=== PATIENT | male | born 1960 | race Caucasian/White ===

== ENCOUNTER 2018-10-14 12:59 | Emergency (ER) | payer OTHER ==
[2018-10-14] MEDS ORDERED: Sodium Chloride 0.9% 1,000 ML IV ONE (13:02)
[2018-10-14] MEDS ORDERED: Heparin Sod,Pork In 0.45% Nacl 25,000 UNIT/500 ML IV.SOLN IV ONE (13:02)
[2018-10-14] MEDS ORDERED: Heparin Sodium 5,000 Units/ML Vial ONE (13:02)
[2018-10-14] MEDS ORDERED: Tenecteplase 50 MG Kit ONE (13:02)
[2018-10-14] MEDS ORDERED: Heparin Sodium 5,000 Units/ML Vial IVPUSH ONE (13:02)
[2018-10-14] MEDS ORDERED: Clopidogrel 75 MG Tab PO ONE (13:06)
[2018-10-14] MEDS ORDERED: Heparin Sod,Pork In 0.45% Nacl 25,000 UNIT/500 ML IV.SOLN IV SCH (13:06)
[2018-10-14] MEDS ORDERED: fentaNYL 100 MCG/2 ML SDV IVPUSH PRN ×2 (13:06)
[2018-10-14] MEDS ORDERED: Tenecteplase 50 MG Kit IV SCH (13:06)
--- NOTE | 2018-10-14 13:08 | EDM.PDOC ---
ED HPI GENERAL MEDICAL PROBLEM - General Chief Complaint: Chest Pain Stated Complaint: CHEST PAIN Time Seen by Provider: 10/14/18 13:06 Source of Information: Reports: Patient - History of Present Illness INITIAL COMMENTS - FREE TEXT/NARRATIVE: HISTORY AND PHYSICAL: History of present illness: Patient with history of stenting presents via EMS with chest pain 8 out of 10 nonradiating clammy no shortness breath at this time EMS had provided aspirin 324 mg chewable as well as 2 nitroglycerin and 25 g of fentanyl pain controlled on arrival Review of systems: As per history of present illness and below otherwise all systems reviewed and negative. Past medical history: As per history of present illness and as reviewed below otherwise noncontributory. Surgical history: As per history of present illness and as reviewed below otherwise noncontributory. Social history: No reported history of drug or alcohol abuse. Family history: As per history of present illness and as reviewed below otherwise noncontributory. Physical exam: HEENT: Atraumatic, normocephalic, pupils reactive, negative for conjunctival pallor or scleral icterus, mucous membranes moist, throat clear, neck supple, nontender, trachea midline. Lungs: Clear to auscultation, breath sounds equal bilaterally, chest nontender. Heart: S1S2, regular, negative for clicks, rubs, or JVD. Abdomen: Soft, nondistended, nontender. Negative for masses or hepatosplenomegaly. Negative for costovertebral tenderness. Pelvis: Stable nontender. Genitourinary: Deferred. Rectal: Deferred. Extremities: Atraumatic, negative for cords or calf pain. Neurovascular unremarkable. Neuro: Awake, alert, oriented. Cranial nerves II through XII unremarkable. Cerebellum unremarkable. Motor and sensory unremarkable throughout. Exam nonfocal. Diagnostics: [EBC CMP UA troponin EKG Chest 1 view ] Therapeutics: [ heparin 4000 unit bolus 12/kg drip rate TN K ] weightbase Plavix 300 mg Impression: acute coronary syndrome Inferior STEMI ] Definitive disposition and diagnosis as appropriate pending reevaluation and review of above. - Related Data Allergies Allergy/AdvReac Type Severity Reaction Status Date / Time No Known Allergies Allergy Verified 10/14/18 13:05 ED ROS GENERAL - Review of Systems Review Of Systems: See Below ED EXAM, GENERAL - Physical Exam Exam: See Below Course - Orders/Labs/Meds Orders: Active Orders 24 hr Category Date Time Status CBC WITH AUTO DIFF [HEME] Stat Lab 10/14/18 13:01 Ordered COMPREHENSIVE METABOLIC PN,CMP [CHEM] Stat Lab 10/14/18 13:02 Ordered TROPONIN I [CHEM] Stat Lab 10/14/18 13:02 Ordered Clopidogrel [Plavix] Med 10/14/18 13:06 Once 300 mg PO ONETIME ONE Sodium Chloride 0.9% [Normal Saline] 1,000 ml Med 10/14/18 13:02 Active IV STAT Medication Orders Clopidogrel Bisulfate (Plavix) 300 mg PO ONETIME ONE Stop: 10/14/18 13:07 Sodium Chloride (Normal Saline) 1,000 mls @ 999 mls/hr IV STAT ONE Stop: 10/14/18 14:02 Meds: Medications Generic Name Dose Route Start Last Admin Trade Name Freq PRN Reason Stop Dose Admin Clopidogrel Bisulfate 300 mg 10/14/18 13:06 Plavix PO 10/14/18 13:07 ONETIME ONE Sodium Chloride 1,000 mls @ 999 mls/hr 10/14/18 13:02 Normal Saline IV 10/14/18 14:02 STAT ONE Discontinued Medications Generic Name Dose Route Start Last Admin Trade Name Freq PRN Reason Stop Dose Admin Heparin Sodium (Porcine) 4,000 units 10/14/18 13:02 Heparin Sodium IVPUSH 10/14/18 13:03 .BOLUS ONE Heparin Sodium (Porcine) Confirm 10/14/18 13:02 Heparin Sodium Administered 10/14/18 13:03 Dose 5,000 units .ROUTE .STK-MED ONE Heparin Sodium/Sodium Chloride Confirm 10/14/18 13:02 Heparin-1/2ns 25,000 Units/500 Administered 10/14/18 13:03 Dose 25,000 unit in 500 mls @ as directed IV .STK-MED ONE Tenecteplase Confirm 10/14/18 13:02 Tnkase Administered 10/14/18 13:03 Dose 50 mg .ROUTE .STK-MED ONE Departure - Departure Time of Disposition: 13:08 Disposition: DC/Tfer to Acute Hospital 02 Condition: Poor Clinical Impression: Acute coronary syndrome - Discharge Information - My Orders Last 24 Hours: My Active Orders 10/14/18 13:01 CBC WITH AUTO DIFF [HEME] Stat 10/14/18 13:02 COMPREHENSIVE METABOLIC PN,CMP [CHEM] Stat TROPONIN I [CHEM] Stat Sodium Chloride 0.9% [Normal Saline] 1,000 ml IV STAT 10/14/18 13:06 Clopidogrel [Plavix] 300 mg PO ONETIME ONE - Assessment/Plan Last 24 Hours: My Active Orders 10/14/18 13:01 CBC WITH AUTO DIFF [HEME] Stat 10/14/18 13:02 COMPREHENSIVE METABOLIC PN,CMP [CHEM] Stat TROPONIN I [CHEM] Stat Sodium Chloride 0.9% [Normal Saline] 1,000 ml IV STAT 10/14/18 13:06 Clopidogrel [Plavix] 300 mg PO ONETIME ONE
[2018-10-14] MEDS ORDERED: fentaNYL 100 MCG/2 ML SDV ONE (13:15)
--- NOTE | 2018-10-14 13:45 | CR ---
EXAMINATION: AP chest radiograph. HISTORY: Chest pain. FINDINGS: The trachea is midline. The cardiomediastinal silhouette is within normal limits. No pulmonary infiltrates, effusions or pneumothorax. Defibrillator pads are noted. Osseous structures appear unremarkable. IMPRESSION: No acute cardiopulmonary process.
[2018-10-14 13:52] LABS: CHLORIDE,CL 105 mmol/L (98-107); SODIUM,NA 139 mmol/L (136-148)
== END 2018-10-14 13:30 ==
LOC: MW.ED 12:59
DX: I24.9 Acute ischemic heart disease, unspecified (principal)
CPT/HCPCS: 36415; 71045; 80053; 84484; 85025; 93005; 96365; 96374; 96375; 99291; A9270; J1644; J3010; J3101; J7040; 99284